=== PATIENT | female | born 1980 | race Caucasian/White ===

== ENCOUNTER 2017-04-28 16:01 | Emergency (ER) | payer OTHER ==
[2017-04-28] MEDS ORDERED: DEXAMETHASONE 4 MG TABLET PO ONE (19:30)
[2017-04-28] MEDS ORDERED: IBUPROFEN 800 MG TABLET PO ONE (19:30)
[2017-04-28] MEDS ORDERED: ONDANSETRON 4 MG TAB.RAPDIS PO ONE (19:30)
[2017-04-28] MEDS ORDERED: OXYCODONE-ACETAMINOPHEN 5-325 MG TABLET PO ONE (19:30)
[2017-04-28] MEDS ORDERED: CEPHALEXIN 500 MG CAPSULE PO ONE (19:30)
--- NOTE | 2017-04-28 19:34 | ER Document Report ---
HPI - HPI Patient complains to provider of: insect bite Onset: This morning Onset/Duration: Gradual Quality of pain: Sharp Pain Level: 4 Context: Patient states that she was bit on her foot by an unknown insect around 5 AM. Patient complains of itchiness, foot pain and swelling. Patient reports headache and nausea as well. Associated Symptoms: Headache, Nausea, Other - Foot pain Exacerbated by: Movement, Walking Relieved by: Denies Similar symptoms previously: No Recently seen / treated by doctor: No - ROS ROS below otherwise negative: Yes Systems Reviewed and Negative: Yes All other systems reviewed and negative - CONSTITUTIONAL Constitutional: DENIES: Fever - NEURO Neurology: REPORTS: Headache. DENIES: Weakness - CARDIOVASCULAR Cardiovascular: DENIES: Chest pain - RESPIRATORY Respiratory: DENIES: Coughing - GASTROINTESTINAL Gastrointestinal: REPORTS: Nausea. DENIES: Abdominal Pain, Patient vomiting - REPRODUCTIVE Reproductive: DENIES: : - MUSCULOSKELETAL Musculoskeletal: REPORTS: Extremity pain, Swelling - DERM Skin Color: Erythema Skin Problems: None Past Medical History - General Information source: Patient - Social History Smoking Status: Never Smoker Chew tobacco use (# tins/day): No Frequency of alcohol use: None Drug Abuse: None Occupation: [employer] Lives with: Family Family History: Reviewed & Not Pertinent Patient has suicidal ideation: No Patient has homicidal ideation: No - Medical History Medical History: Other - vocal dysfunction - Past Medical History Cardiac Medical History: Denies: Hx Coronary Artery Disease, Hx Heart Attack, Hx Hypertension Pulmonary Medical History: Reports: Hx Asthma Denies: Hx Bronchitis, Hx COPD, Hx Pneumonia Neurological Medical History: Denies: Hx Cerebrovascular Accident, Hx Seizures Endocrine Medical History: Denies: Hx Diabetes Mellitus Type 2 Renal/ Medical History: Denies: Hx Peritoneal Dialysis Musculoskeltal Medical History: Denies Hx Arthritis Psychiatric Medical History: Reports: Hx Anxiety Past Surgical History: Reports: Hx Section - x2, Hx Cholecystectomy, Hx Hysterectomy, Hx Orthopedic Surgery - left shouldar, Hx Tonsillectomy - Immunizations Hx Diphtheria, Pertussis, Tetanus Vaccination: Yes Vertical Provider Document - CONSTITUTIONAL Agree With Documented VS: Yes Exam Limitations: No Limitations General Appearance: WD/WN, No Apparent Distress - INFECTION CONTROL TRAVEL OUTSIDE OF THE [place] IN LAST 30 DAYS: No - HEENT HEENT: Atraumatic, Normocephalic - NECK Neck: Normal Inspection, Supple - RESPIRATORY Respiratory: Breath Sounds Normal, No Respiratory Distress O2 Sat by Pulse Oximetry: 97 - CARDIOVASCULAR Cardiovascular: Regular Rate, Regular Rhythm, No Murmur Pulses: Normal: Posterior tibial, Dorsalis pedis - MUSCULOSKELETAL/EXTREMETIES Musculoskeletal/Extremeties: MAEW, Tender - right foot tenderness, 2+ edema with mild erythema. No concern for abscess - NEURO Level of Consciousness: Awake, Alert, Appropriate Motor/Sensory: No Motor Deficit, No Sensory Deficit - DERM Integumentary: Warm, Dry. negative: Abscess Notes: erythema right foot Course - Vital Signs Vital signs: Temp Pulse Resp BP Pulse Ox 98.1 F 92 20 133/93 H 97 04/28/17 16:06 04/28/17 16:06 04/28/17 16:06 04/28/17 16:06 04/28/17 16:06 Discharge - Discharge Clinical Impression: Insect bite of foot, right Qualifiers: Encounter type: initial encounter Qualified Code(s): S90.861A - Insect bite ( nonvenomous), right foot, initial encounter Condition: Stable Disposition: HOME, SELF-CARE Instructions: Swollen Insect Bite or Sting ([facility]), Cephalexin ([facility]), Oral Narcotic Medication ([facility]) Additional Instructions: Return immediately for any new or worsening symptoms Followup with your primary care provider, call tomorrow to make a followup appointment Prescriptions: Cephalexin Monohydrate [Keflex 500 mg Capsule] 500 mg PO Q6H 5 Days Ondansetron HCl [Zofran 4 mg Tablet] 1 - 2 tab PO Q6 PRN #15 tablet PRN Reason: Oxycodone HCl/Acetaminophen [Percocet 5-325 mg Tablet] 1 tab PO ASDIR PRN #15 tablet PRN Reason: Forms: Return to Work Referrals: [facility] [Provider Group] - Follow up as needed
[2017-04-28 21:08] VITALS: BP 121/79
== END 2017-04-28 19:40 | disposition home or self-care (01) ==
LOC: ER 16:01
DX: S90.861A Insect bite (nonvenomous), right foot, initial encounter (principal); M79.89 Other specified soft tissue disorders; R51 Headache; R11.0 Nausea; M79.673 Pain in unspecified foot; W57.XXXA Bitten or stung by nonvenomous insect and other nonvenomous arthropods, initial encounter
CPT/HCPCS: 99281; S0119

== ENCOUNTER 2018-08-04 23:11 | Emergency (ER) | payer OTHER ==
[2018-08-04 23:37] VITALS: BP 116/73
--- NOTE | 2018-08-05 00:43 | RADIOLOGY REPORT (SQ) ---
4 VIEWS OF THE RIGHT KNEE HISTORY: Knee pain. COMPARISON: None. FINDINGS/IMPRESSION: Normal bone mineralization. No acute fracture or malalignment. Joint spaces are preserved. No joint effusion or soft tissue swelling.
[2018-08-05] MEDS ORDERED: HYDROCODONE/ACETAMINOPHEN 5-325 MG (6 TAB/ER DISP) PO PRN (02:39)
--- NOTE | 2018-08-05 02:41 | ER Document Report ---
ED Extremity Problem, Lower - General Chief Complaint: Knee Injury Stated Complaint: KNEE PAIN Time Seen by Provider: 08/05/18 02:20 TRAVEL OUTSIDE OF THE [place] IN LAST 30 DAYS: No - HPI Patient complains to provider of: Other - 37-year-old female who is generally healthy with pain in the right knee. She was standing at which time she shifted her weight, felt her right knee pop at which time she thought it might have hyperextended she had pain and swelling thereafter and decided to come the emergency room. Denies any fevers or chills, denies any abdominal pain, diarrhea constipation dysuria or other symptoms at this time. - Related Data Allergies/Adverse Reactions: adhesive tape Allergy (Verified 04/28/17 16:06) morphine [Morphine] Adverse Reaction (Unknown, Verified 04/28/17 16:06) Anxiety Past Medical History - General Information source: Patient - Social History Smoking Status: Former Smoker Family History: Reviewed & Not Pertinent - Past Medical History Cardiac Medical History: Denies: Hx Coronary Artery Disease, Hx Heart Attack, Hx Hypertension Pulmonary Medical History: Reports: Hx Asthma Denies: Hx Bronchitis, Hx COPD, Hx Pneumonia Neurological Medical History: Denies: Hx Cerebrovascular Accident, Hx Seizures Endocrine Medical History: Denies: Hx Diabetes Mellitus Type 2 Renal/ Medical History: Denies: Hx Peritoneal Dialysis Musculoskeletal Medical History: Denies Hx Arthritis Psychiatric Medical History: Reports: Hx Anxiety Past Surgical History: Reports: Hx Section - x2, Hx Cholecystectomy, Hx Hysterectomy, Hx Orthopedic Surgery - left shouldar, Hx Tonsillectomy - Immunizations Hx Diphtheria, Pertussis, Tetanus Vaccination: Yes Review of Systems - Review of Systems -: Yes All other systems reviewed and negative Physical Exam - Vital signs Vitals: Temp Pulse Resp BP Pulse Ox 98.1 F 66 16 116/73 16 L 08/04/18 23:33 08/04/18 23:33 08/04/18 23:33 08/04/18 23:33 08/04/18 23:33 - General General appearance: Appears well In distress: None - HEENT Head: Normocephalic Eyes: Normal Conjunctiva: Normal Cornea: Normal Extraocular movements intact: Yes Eyelashes: Normal Pupils: PERRL - Respiratory Respiratory status: No respiratory distress Chest status: Nontender Breath sounds: Normal Chest palpation: Normal - Cardiovascular Rhythm: Regular Heart sounds: Normal auscultation Murmur: No - Abdominal Inspection: Normal Distension: No distension Tenderness: Nontender - Back Back: Normal - Extremities General upper extremity: Normal inspection, Nontender, Normal ROM, Normal strength Knee: Other - The lower extremities are symmetric, the pelvis is stable, there is normal range of motion in the hips, knees, and ankles with passive range of motion The right knee demonstrates marked tenderness over the past There is no appreciable laxity on anterior drawer or varus or valgus stress, no palpable step-off along the tibial plateau Course - Re-evaluation Re-evalutation: 08/05/18 03:38 This is a 37-year-old with a sore knee after an atraumatic hyperextension injury. On examination she is got strong pulses distally, no obvious large effusion but tenderness over the insertion of the hamstrings. We will plan for this patient to undergo placement of a knee immobilizer crutches for assistance with ambulation and referral to orthopedics. She is in agreement with this at this time. Was given return precautions as well. - Vital Signs Vital signs: Temp Pulse Resp BP Pulse Ox 98.1 F 66 16 116/73 16 L 08/04/18 23:33 08/04/18 23:33 08/04/18 23:33 08/04/18 23:33 08/04/18 23:33 Discharge - Discharge Clinical Impression: Right knee sprain Qualifiers: Encounter type: initial encounter Involved ligament of knee: medial collateral ligament Qualified Code(s): S83.411A - Sprain of medial collateral ligament of right knee, initial encounter Knee pain Qualifiers: Chronicity: acute Laterality: right Qualified Code(s): M25.561 - Pain in right knee Condition: Good Disposition: HOME, SELF-CARE Instructions: Use of Crutches ([facility]), Ice & Elevation ([facility]), Suspected Internal Knee Injury ([facility]), Knee Immobilizing Splint ([facility]), Oral Narcotic Medication ([facility] ) Prescriptions: Hydrocodone/Acetaminophen [[place] 5-325 mg Tablet] 1 tab PO Q6H PRN #8 tablet PRN Reason: Referrals: EDITH NOLASCO MD [ACTIVE STAFF] - Follow up as needed
== END 2018-08-05 03:46 | disposition home or self-care (01) ==
LOC: ER 23:11
DX: S83.411A Sprain of medial collateral ligament of right knee, initial encounter (principal); M25.561 Pain in right knee; X50.9XXA Other and unspecified overexertion or strenuous movements or postures, initial encounter; J45.909 Unspecified asthma, uncomplicated; Z88.5 Allergy status to narcotic agent; Z91.048 Other nonmedicinal substance allergy status; Z87.891 Personal history of nicotine dependence
CPT/HCPCS: 99283; 73564; L1830

== ENCOUNTER → 2018-10-10 | Outpatient (CLI) | payer BC, OTHER ==
--- NOTE | 2018-10-10 15:43 | RADIOLOGY REPORT (SQ) ---
EXAM DESCRIPTION: CHEST 2 VIEWS COMPLETED DATE/TIME: 10/10/2018 1:18 pm REASON FOR STUDY: R05 COUGH COMPARISON: None. EXAM PARAMETERS: NUMBER OF VIEWS: two views TECHNIQUE: Digital Frontal and Lateral radiographic views of the chest acquired. RADIATION DOSE: NA LIMITATIONS: none FINDINGS: LUNGS AND PLEURA: No opacities, masses or pneumothorax. No pleural effusion. MEDIASTINUM AND HILAR STRUCTURES: No masses or contour abnormalities. HEART AND VASCULAR STRUCTURES: Heart normal size. No evidence for failure. BONES: No acute findings. HARDWARE: None in the chest. OTHER: No other significant finding. IMPRESSION: NO ACUTE RADIOGRAPHIC FINDING IN THE CHEST. TECHNICAL DOCUMENTATION: JOB ID: [id number] [employer]- All Rights Reserved Reading location - IP/workstation name: [email or web address]
== END ==
LOC: RAD 12:56
PROVIDERS: ATTEND Pediatrics Neonatal-Perinatal Medicine
DX: R05 Cough (principal)
CPT/HCPCS: 71046

== ENCOUNTER → 2018-11-06 | Outpatient (CLI) | payer BC, OTHER ==
[2018-11-06 15:51] LABS: A TYPE INFLUENZA AG NEGATIVE (NEGATIVE); B INFLUENZA AG NEGATIVE (NEGATIVE)
== END ==
LOC: OD 15:06
PROVIDERS: ATTEND Nurse Practitioner Family
DX: R68.89 Other general symptoms and signs (principal)
CPT/HCPCS: 87804

== ENCOUNTER → 2019-01-05 | Outpatient (CLI) | payer OTHER ==
[2019-01-05 12:42] LABS: BACTERIA (WET MOUNT) 4+ BACTERIA SEEN; EPITHELIALS (WET MOUNT) 4+ EPITHELIALS SEEN; T.VAGINALIS (WET MOUNT) NO TRICHOMONAS SEEN; WBCS (WET MOUNT) FEW WBCS SEEN; YEAST (WET MOUNT) YEAST SEEN
[2019-01-05 14:17] LABS: CHLAM PCR NOT DETECTED (NOT DETECT); GON PCR NOT DETECTED (NOT DETECT)
== END ==
LOC: LAB 12:40
PROVIDERS: ATTEND Nurse Practitioner Family
DX: N89.8 Other specified noninflammatory disorders of vagina (principal)
CPT/HCPCS: 87086; 87210; 87491; 87591

== ENCOUNTER 2019-06-23 14:57 | Emergency (ER) | payer OTHER ==
[2019-06-23] MEDS ORDERED: OXYCODONE-ACETAMINOPHEN 5-325 MG TABLET PO ONE (15:21)
[2019-06-23] MEDS ORDERED: ONDANSETRON 4 MG TAB.RAPDIS PO ONE (15:21)
[2019-06-23] MEDS ORDERED: KETOROLAC TROMETHAMINE INJ/PF 30 MG/1 ML SDV IV ONE (15:37)
[2019-06-23] MEDS ORDERED: METOCLOPRAMIDE HCL INJ/PF 10 MG/2 ML SDV IV ONE (15:37)
[2019-06-23] MEDS ORDERED: DIPHENHYDRAMINE HCL 50 MG/ML VIAL IV ONE (15:37)
[2019-06-23] MEDS ORDERED: DEXAMETHASONE SOD PHOS INJ 10 MG/1 ML VIAL IV ONE (15:37)
--- NOTE | 2019-06-23 15:41 | ER Document Report ---
ED Medical Screen (RME) - General Chief Complaint: Arm Pain Stated Complaint: NECK PAIN/NUMBNESS ON LEFT ARM Time Seen by Provider: 06/23/19 15:06 Primary Care Provider: DEREJE ALBRECHT MD [Primary Care Provider] - Follow up as needed Notes: Patient is a 38-year-old female presents to emergency department with a chief complaint of posterior neck pain and left arm pain. Patient states she was seen last week for the same and was diagnosed with a C7 bone spur. Patient states she was given Robaxin and naproxen which was only helping slightly. Patient reports that over the past week the neck and left arm pain has continued to get worse. Patient reports when she was seen here in the emergency department she was having left arm weakness with numbness and tingling. Patient states today while at work around 11:30 AM she went to lift her left arm and as she did this she got extreme pain down her left arm and was unable to grab the pin as she was having significant weakness to the left thumb, index finger and middle finger. Patient states as long as she does not move her left arm above the height of her shoulder the symptoms do improve. Patient also reports having extreme tension to the back of her neck and and headache. TRAVEL OUTSIDE OF THE [place] IN LAST 30 DAYS: No - Related Data Allergies/Adverse Reactions: adhesive tape Allergy (Verified 06/23/19 14:58) morphine [Morphine] Adverse Reaction (Unknown, Verified 06/23/19 14:58) Anxiety Past Medical History - Past Medical History Cardiac Medical History: Denies: Hx Coronary Artery Disease, Hx Heart Attack, Hx Hypertension Pulmonary Medical History: Reports: Hx Asthma Denies: Hx Bronchitis, Hx COPD, Hx Pneumonia Neurological Medical History: Denies: Hx Cerebrovascular Accident, Hx Seizures Endocrine Medical History: Denies: Hx Diabetes Mellitus Type 2 Renal/ Medical History: Denies: Hx Peritoneal Dialysis Musculoskeltal Medical History: Denies Hx Arthritis Psychiatric Medical History: Reports: Hx Anxiety Past Surgical History: Reports: Hx Section - x2, Hx Cholecystectomy, Hx Hysterectomy, Hx Orthopedic Surgery - left shouldar, Hx Tonsillectomy - Immunizations Hx Diphtheria, Pertussis, Tetanus Vaccination: Yes Physical Exam - Vital signs Vitals: Temp Pulse Resp BP Pulse Ox 98.4 F 81 18 131/62 H 97 06/23/19 15:07 06/23/19 15:07 06/23/19 15:07 06/23/19 15:07 06/23/19 15:07 - Respiratory Respiratory status: No respiratory distress Chest status: Nontender Breath sounds: Normal Chest palpation: Normal - Cardiovascular Rhythm: Regular Heart sounds: Normal auscultation, S1 appreciated, S2 appreciated - Extremities Notes: 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 Course - Re-evaluation Re-evalutation: 06/23/19 15:41 I have greeted and performed a rapid initial assessment of this patient. A comprehensive ED assessment and evaluation of the patient, analysis of test results and completion of the medical decision making process will be conducted by additional ED providers. - Vital Signs Vital signs: Temp Pulse Resp BP Pulse Ox 98.4 F 81 18 131/62 H 97 06/23/19 15:07 06/23/19 15:07 06/23/19 15:07 06/23/19 15:07 06/23/19 15:07 Doctor's Discharge - Discharge Referrals: DEREJE ALBRECHT MD [Primary Care Provider] - Follow up as needed
--- NOTE | 2019-06-23 18:41 | ER Document Report ---
ED General - General Chief Complaint: Arm Pain Stated Complaint: NECK PAIN/NUMBNESS ON LEFT ARM Time Seen by Provider: 06/23/19 15:06 Primary Care Provider: [facility] [Provider Group] - 06/25/19 Neurosurgery [Provider Group] - 06/25/19 DEREJE ALBRECHT MD [Primary Care Provider] - Follow up as needed TRAVEL OUTSIDE OF THE [place] IN LAST 30 DAYS: No - HPI Notes: 38-year-old female presents with left upper extremity weakness numbness and severe neck pain. Patient states a week ago she began to have some burning pain in her left upper extremity and neck. At that time she was seen in the emergency department, underwent CT imaging, was told she had a bone spur and sent home. Today at work around 11:30 AM she states she had done something and suddenly had sudden onset of severe pain in her neck coming all the way down her arm with some associated left arm numbness and is now having difficulty moving her fingers and is weak in her arm. She is improved somewhat since then but only marginally. No discrete direct injury. No fever, chills or sweats. No history of IV drug abuse. No history of prior neck injury. She had some type of shoulder surgery done on the left shoulder before in 2012 states she had 4 screws put in. Moderate severe intensity, sudden onset, nonradiating except as described. Worse with motion. No other modifying factors, no other associated symptoms, no other provocative or palliative factors. - Related Data Allergies/Adverse Reactions: adhesive tape Allergy (Verified 06/23/19 14:58) morphine [Morphine] Adverse Reaction (Unknown, Verified 06/23/19 14:58) Anxiety Past Medical History - Social History Smoking Status: Current Every Day Smoker Family History: Reviewed & Not Pertinent Patient has suicidal ideation: No Patient has homicidal ideation: No - Medical History Notes: Includes prior shoulder surgery - Past Medical History Cardiac Medical History: Denies: Hx Coronary Artery Disease, Hx Heart Attack, Hx Hypertension Pulmonary Medical History: Reports: Hx Asthma Denies: Hx Bronchitis, Hx COPD, Hx Pneumonia Neurological Medical History: Denies: Hx Cerebrovascular Accident, Hx Seizures Endocrine Medical History: Denies: Hx Diabetes Mellitus Type 2 Renal/ Medical History: Denies: Hx Peritoneal Dialysis Musculoskeletal Medical History: Denies Hx Arthritis Psychiatric Medical History: Reports: Hx Anxiety Past Surgical History: Reports: Hx Section - x2, Hx Cholecystectomy, Hx Hysterectomy, Hx Orthopedic Surgery - left shouldar, Hx Tonsillectomy - Immunizations Hx Diphtheria, Pertussis, Tetanus Vaccination: Yes Review of Systems - Review of Systems Notes: Review of systems as in the history of present illness, otherwise negative x 10 systems. Physical Exam - Vital signs Vitals: Temp Pulse Resp BP Pulse Ox 98.4 F 81 18 131/62 H 97 06/23/19 15:07 06/23/19 15:07 06/23/19 15:07 06/23/19 15:07 06/23/19 15:07 - Notes Notes: General: Well developed . HEENT: Normocephalic, atraumatic. Pupils equal round reactive to light. No JVD. Chest: No trauma. Respiratory: Good air exchange, normal excursion. Cardiac: Regular rhythm. No murmurs or gallops. Abdomen: Soft, benign. Nondistended. Nontender. Back: No asymmetry or gross abnormality. Motor: Decreased power at 4+ out of 5 in the left upper extremity compared to the right Neurologic: Anterolateral left upper extremity, normal pulses. Vascular: Well perfused. Normal peripheral pulses. Skin: No petechiae or purpura. Left upper extremity exam. Patient has diminished/absent reflexes at the biceps and triceps. Brachioradialis is unable to be elicited on both sides. She has weakness in all intrinsic muscles of the hand, as well as subtle mild weakness in flexion and extension at the elbow. She appears to be intact and symmetric in abduction/adduction and flexion extension at the shoulder. Wrist flexion and extension are also diminished on the left compared to the right. Course - Re-evaluation Re-evalutation: 06/23/19 18:40 38-year-old female with classic radicular symptoms consistent with cervical radiculopathy. However, she has had acute and marked worsening today. Concern over potential for cord impingement. We will proceed with emergent MRI, she is already received therapy and initial work-up from physician in triage including IV Decadron and Toradol. 06/24/19 04:04 Patient underwent MR imaging of her cervical spine. Showed a small central disc bulge at C5-C6. Patient has had no worsening during the course here, remains with what appears to be some improved strength on reexamination. She is referred closely to neurosurgery as an outpatient, given a prescription for analgesics and a Medrol Dosepak, will contact her primary care doctor in the morning. - Vital Signs Vital signs: Temp Pulse Resp BP Pulse Ox 97.8 F 60 16 102/57 L 100 06/24/19 01:28 06/23/19 22:05 06/24/19 01:28 06/24/19 01:28 06/24/19 01:28 Discharge - Discharge Clinical Impression: Cervical radiculitis Condition: Stable Disposition: HOME, SELF-CARE Instructions: Radiculopathy ([facility]) Additional Instructions: Contact your primary care doctor tomorrow for reevaluation and referral Prescriptions: Hydrocodone/Acetaminophen [Hydrocodone-Acetamin 5-300 mg] 1 each PO Q6 PRN #12 tablet PRN Reason: Methylprednisolone [Medrol Dosepack (4 mg/Tab) 21 Tab/Dosepak] 21 tab PO ASDIR PRN #1 dspk PRN Reason: Forms: Return to Work Referrals: DEREJE ALBRECHT MD [Primary Care Provider] - Follow up as needed [facility] [Provider Group] - 06/25/19 Neurosurgery [Provider Group] - 06/25/19
--- NOTE | 2019-06-23 22:58 | RADIOLOGY REPORT (SQ) ---
EXAM DESCRIPTION: MR CERVICAL SPINE WITHOUT IV CONTRAST COMPLETED DATE/TME: 06/23/2019 18:33 CLINICAL HISTORY: 38 years Female, Severe radicular pain, left UE weak and numb COMPARISON:Jun 14 2019, CT TECHNIQUE/LIMITATION: Conventional noncontrast MRI. FINDINGS: Normal alignment and curvature. Normal bone marrow signal. Normal signal of the spinal cord. Minimal inferior displacement of the cerebellar tonsils, 3 mm or less. Additionally, by levels: Craniovertebral junction: No significant spinal cord or nerve root compression. C1-C2: No significant spinal cord or nerve root compression. C2-C3: No significant spinal cord or nerve root compression. C3-C4: No significant spinal cord or nerve root compression. C4-C5: No significant spinal cord or nerve root compression. C5-C6: Small central disc protrusion mildly indents the ventral surface of the spinal cord. Normal cord signal. C6-C7: No significant spinal cord or nerve root compression. C7-T1: No significant spinal cord or nerve root compression. T1-T2: No significant spinal cord or nerve root compression. T2-T3: No significant spinal cord or nerve root compression. Else, unremarkable remaining soft tissues and neurovasculature including the visualized inferior cranium, nuchal soft tissues, lung apices, and paraspinal compartment. IMPRESSION: C5-C6: Small central disc protrusion mildly indents the ventral surface of the spinal cord.
[2019-06-24 01:30] VITALS: BP 102/57
== END 2019-06-24 01:30 | disposition home or self-care (01) ==
LOC: ER 14:57
DX: M54.12 Radiculopathy, cervical region (principal); M79.602 Pain in left arm; R20.0 Anesthesia of skin; F17.200 Nicotine dependence, unspecified, uncomplicated; Z88.6 Allergy status to analgesic agent; Z90.49 Acquired absence of other specified parts of digestive tract; Z90.710 Acquired absence of both cervix and uterus
CPT/HCPCS: 99283; 96374; 96375; 72141; J1200; J1885; J2765; J1100

== ENCOUNTER → 2019-10-14 | Outpatient (CLI) | payer OTHER ==
--- NOTE | 2019-10-14 12:59 | RADIOLOGY REPORT (SQ) ---
EXAM DESCRIPTION: C SP 3 VWS OR LESS COMPLETED DATE/TIME: 10/14/2019 10:06 am REASON FOR STUDY: CERVICAL RADICULOPATHY M54.12 RADICULOPATHY, CERVICAL REGION COMPARISON: None. NUMBER OF VIEWS: Two views TECHNIQUE: Lateral radiographic images in flexion and extension acquired of the cervical spine. LIMITATIONS: None. FINDINGS: MINERALIZATION: Normal. ALIGNMENT: Anatomic. VERTEBRAE: Vertebral bodies of normal height. DISCS: Disc implants are present at C4-5 and C5-6. HARDWARE: Anterior plate from C4-C6 with screws into the vertebral bodies and disc implants. SOFT TISSUES: No masses or calcifications. Lung apices clear. OTHER: No other significant finding. IMPRESSION: ACDF C4-C6 with no instability on flexion/ extension. TECHNICAL DOCUMENTATION: JOB ID: [id number] [employer]- All Rights Reserved Reading location - IP/workstation name: [email or web address]
== END ==
LOC: OD 09:27
PROVIDERS: ATTEND Specialist
DX: M54.12 Radiculopathy, cervical region (principal)
CPT/HCPCS: 72040

== ENCOUNTER → 2019-11-25 | Outpatient (CLI) | payer OTHER ==
--- NOTE | 2019-11-25 14:57 | RADIOLOGY REPORT (SQ) ---
EXAM DESCRIPTION: C SP 3 VWS OR LESS COMPLETED DATE/TIME: 11/25/2019 2:39 pm REASON FOR STUDY: CERVICAL DISC DISORDER W RADICULOPATHY, UNSP CERVICAL REGION M50.10 CERVICAL DISC DISORDER W RADICULOPATHY, UNSP CERVICAL COMPARISON: 10/14/2019. NUMBER OF VIEWS: Two view. TECHNIQUE: Lateral views of the cervical spine with flexion and extension. LIMITATIONS: None. FINDINGS: MINERALIZATION: Normal. ALIGNMENT: Anatomic. FLEXION/EXTENSION: No instability. VERTEBRAE: Vertebral bodies of normal height. DISCS: No significant osteophytes or sclerosis. Disc height maintained. LATERAL AND POSTERIOR ELEMENTS: Facets, lateral masses, and spinous processes without significant fin dings. HARDWARE: Disc inserts and anterior hardware at C4-C5 and C5-C6. SOFT TISSUES: No masses or calcifications. Lung apices clear. OTHER: No other significant finding. IMPRESSION: STABLE SURGICAL CHANGES AND HARDWARE. NO INSTABILITY ON FLEXION/EXTENSION. TECHNICAL DOCUMENTATION: JOB ID: [id number] [employer]- All Rights Reserved Reading location - IP/workstation name: [email or web address]
== END ==
LOC: OD 14:09
PROVIDERS: ATTEND Specialist
DX: M54.12 Radiculopathy, cervical region (principal)
CPT/HCPCS: 72040

== ENCOUNTER 2020-05-14 15:16 | Emergency (ER) | payer OTHER ==
[2020-05-14] MEDS ORDERED: KETOROLAC TROMETHAMINE 60 MG/2 ML SDV IM ONE (16:56)
[2020-05-14] MEDS ORDERED: DEXAMETHASONE SOD PHOS INJ 10 MG/1 ML VIAL IM ONE (16:56)
--- NOTE | 2020-05-14 16:56 | ER Document Report ---
ED Medical Screen (RME) - General Chief Complaint: Hip Pain Stated Complaint: HIP/BACK PAIN Time Seen by Provider: 05/14/20 16:54 Primary Care Provider: MERCEDEZ KAPOOR MD [Primary Care Provider] - Follow up as needed Mode of Arrival: Wheelchair Information source: Patient Notes: 39-year-old female presents to ED for complaint of increasing hip pelvic and low back pain. She states the pain is so that she is having difficulty walking. She states she does have a long history of pelvic hip and back pain. She states last night she took a diazepam for the pain and this morning at 8:00 she took 800 of ibuprofen and has had no relief. She states [facility]. She is also a state employee. She states she was seen couple weeks ago at urgent care and they gave her Toradol and Decadron and they did not do well letter good but she is willing to try it again. She states she does smoke a half a pack a day does not drink alcohol or use any illicit drugs. I have greeted and performed a rapid initial assessment of this patient. A comprehensive ED assessment and evaluation of the patient, analysis of test results and completion of medical decision making process will be conducted by an additional ED providers. TRAVEL OUTSIDE OF THE [place] IN LAST 30 DAYS: No - Related Data Allergies/Adverse Reactions: adhesive tape Allergy (Verified 06/23/19 14:58) morphine [Morphine] Adverse Reaction (Unknown, Verified 06/23/19 14:58) Anxiety Past Medical History - Past Medical History Cardiac Medical History: Denies: Hx Coronary Artery Disease, Hx Heart Attack, Hx Hypertension Pulmonary Medical History: Reports: Hx Asthma Denies: Hx Bronchitis, Hx COPD, Hx Pneumonia Neurological Medical History: Denies: Hx Cerebrovascular Accident, Hx Seizures Endocrine Medical History: Denies: Hx Diabetes Mellitus Type 2 Renal/ Medical History: Denies: Hx Peritoneal Dialysis Musculoskeltal Medical History: Denies Hx Arthritis Psychiatric Medical History: Reports: Hx Anxiety Past Surgical History: Reports: Hx Section - x2, Hx Cholecystectomy, Hx Hysterectomy, Hx Orthopedic Surgery - left shouldar, Hx Tonsillectomy - Immunizations Hx Diphtheria, Pertussis, Tetanus Vaccination: Yes Physical Exam - Vital signs Vitals: Temp Pulse Resp BP Pulse Ox 98.4 F 79 18 106/58 L 100 05/14/20 15:25 05/14/20 15:25 05/14/20 15:25 05/14/20 15:25 05/14/20 15:25 Course - Vital Signs Vital signs: Temp Pulse Resp BP Pulse Ox 98.4 F 79 18 106/58 L 100 05/14/20 15:25 05/14/20 15:25 05/14/20 15:25 05/14/20 15:25 05/14/20 15:25 Doctor's Discharge - Discharge Referrals: MERCEDEZ KAPOOR MD [Primary Care Provider] - Follow up as needed
--- NOTE | 2020-05-14 17:32 | RADIOLOGY REPORT (SQ) ---
EXAM DESCRIPTION: HIP LEFT AP/LATERAL IMAGES COMPLETED DATE/TIME: 05/14/2020 5:14 pm REASON FOR STUDY: Exacerbation of pain , left hip pelvic and low rebekah COMPARISON: None. NUMBER OF VIEWS: Two views. TECHNIQUE: AP pelvis and additional frog-leg view of the left hip. LIMITATIONS: None. FINDINGS: MINERALIZATION: Normal. LEFT HIP: No fracture or dislocation. No worrisome bone lesions. RIGHT HIP: No fracture or dislocation. No worrisome bone lesions. PUBIS AND ISCHIUM: No fracture. PELVIS: No fracture. SACRUM: No fracture or dislocation. No worrisome bone lesions. LOWER LUMBAR SPINE: No fracture or dislocation. No worrisome bone lesions. No significant disc disea se. SOFT TISSUES: No findings. OTHER: No other significant finding. IMPRESSION: NO RADIOGRAPHIC EVIDENCE OF ACUTE INJURY. TECHNICAL DOCUMENTATION: JOB ID: [id number] [place]-72 2010 [employer]- All Rights Reserved Reading location - IP/workstation name: [email or web address]
--- NOTE | 2020-05-14 17:33 | RADIOLOGY REPORT (SQ) ---
EXAM DESCRIPTION: L SPINE WHOLE IMAGES COMPLETED DATE/TIME: 05/14/2020 5:14 pm REASON FOR STUDY: Exacerbation of pain , left hip pelvic and low rebekah COMPARISON: None. NUMBER OF VIEWS: Five views including obliques. TECHNIQUE: AP, lateral, oblique, and sacral radiographic images acquired of the lumbar spine. LIMITATIONS: None. FINDINGS: MINERALIZATION: Normal. SEGMENTATION: Normal. No transitional anatomy. ALIGNMENT: Normal. VERTEBRAE: Maintained height. No fracture or worrisome bone lesion. DISCS: Preserved height. No significant osteophytes or end plate irregularity. POSTERIOR ELEMENTS: Pedicles and facets are intact. No pars defect or posterior arch defects. HARDWARE: None in the spine. PARASPINAL SOFT TISSUES: Normal. PELVIS: Intact as visualized. No fractures or worrisome bone lesions. SI joints intact. OTHER: No other significant finding. IMPRESSION: No acute findings. TECHNICAL DOCUMENTATION: JOB ID: [id number] [place]-72 2010 [employer]- All Rights Reserved Reading location - IP/workstation name: [email or web address]
[2020-05-14 18:06] VITALS: BP 104/64
--- NOTE | 2020-05-14 18:14 | ER Document Report ---
ED Neck/Back Problem - General Chief Complaint: Hip Pain Stated Complaint: HIP/BACK PAIN Time Seen by Provider: 05/14/20 16:54 Primary Care Provider: MERCEDEZ KAPOOR MD [NO LOCAL MD] - Follow up as needed KATE LIM MD [ASSOCIATE] - Follow up as needed Mode of Arrival: Wheelchair Notes: 39-year-old female presented to ED for complaint of left hip pain with low back and left pelvic pain. She states about 10 PM last night the pain started really bad. She states the pain was not bad yesterday so [place] and then last night she took a diazepam because the pain was so bad then this morning about 7 or 8:00 she took 800 of ibuprofen. She states the pain is been severe since then. She does have a past medical history with [facility] and she is now a state employee. Alert oriented respirations regular nonlabored speaking in full sentences. She is able to walk she has no signs or symptoms of cauda equina, no loss control of bowel bladder, no saddle anesthesia, no loss of control or sensation to the lower extremities. TRAVEL OUTSIDE OF THE [place] IN LAST 30 DAYS: No - HPI Patient complains to provider of: Pain, Lower back - Left hip and left pelvis Onset: Other - Tonic with exacerbation last night Where: Home Onset: Chronic Timing: Worse Quality of pain: Cramping, Sharp Severity: Moderate Pain Level: 4 Context: Turning Recent injury: No Associated symptoms: Like prior neck/back pain, Radiation to leg - Left hip pe lvis, Lower back pain. denies: Constipation, Fever, Incontinence, Motor loss, Numbness/tingling, Sensory loss, Sweaty, Unable to urinate Exacerbated by: Movement of trunk, Sitting position Relieved by: Nothing Similar symptoms previously: Yes Recently seen / treated by doctor: No - Related Data Allergies/Adverse Reactions: adhesive tape Allergy (Verified 05/14/20 16:58) morphine [Morphine] Adverse Reaction (Unknown, Verified 05/14/20 16:58) Anxiety Home Medications: paxil. asa Past Medical History - General Information source: Patient - Social History Smoking Status: Current Every Day Smoker Cigarette use (# per day): Yes - 1/2 pack/day Chew tobacco use (# tins/day): No Smoking Education Provided: Yes - 4 minutes Frequency of alcohol use: None Drug Abuse: None Occupation: State employee Lives with: Family Family History: Reviewed & Not Pertinent Patient has suicidal ideation: No Patient has homicidal ideation: No - Past Medical History Cardiac Medical History: Reports: None Pulmonary Medical History: Reports: Hx Asthma EENT Medical History: Reports: None Neurological Medical History: Reports: None Endocrine Medical History: Reports: None Renal/ Medical History: Reports: None Malignancy Medical History: Reports: None GI Medical History: Reports: None Musculoskeletal Medical History: Reports Hx Musculoskeletal Deformity, Reports Hx Musculoskeletal Trauma Skin Medical History: Reports None Psychiatric Medical History: Reports: Hx Anxiety Traumatic Medical History: Reports: None Infectious Medical History: Reports: None Past Surgical History: Reports: Hx Section - x2, Hx Cholecystectomy, Hx Hysterectomy, Hx Orthopedic Surgery - left shouldar, Hx Tonsillectomy - Immunizations Hx Diphtheria, Pertussis, Tetanus Vaccination: Yes Review of Systems - Review of Systems Constitutional: No symptoms reported EENT: No symptoms reported Cardiovascular: No symptoms reported Respiratory: No symptoms reported Gastrointestinal: No symptoms reported Genitourinary: No symptoms reported Female Genitourinary: No symptoms reported Musculoskeletal: Back pain, Muscle pain, Muscle stiffness Skin: No symptoms reported Hematologic/Lymphatic: No symptoms reported Neurological/Psychological: Numbness -: Yes All other systems reviewed and negative Physical Exam - Vital signs Vitals: Temp Pulse Resp BP Pulse Ox 98.4 F 79 18 106/58 L 100 05/14/20 15:25 05/14/20 15:25 05/14/20 15:25 05/14/20 15:25 05/14/20 15:25 Interpretation: Normal - General General appearance: Appears well, Alert - HEENT Head: Normocephalic, Atraumatic Eyes: Normal Pupils: PERRL - Respiratory Respiratory status: No respiratory distress Chest status: Nontender Breath sounds: Normal Chest palpation: Normal - Cardiovascular Rhythm: Regular Heart sounds: Normal auscultation Murmur: No - Abdominal Inspection: Normal Distension: No distension Bowel sounds: Normal Tenderness: Nontender Organomegaly: No organomegaly - Back Back: Normal, Tender, Vertebra tenderness Notes: 39-year-old female presented to ED for signs or symptoms of cauda equina,, no loss control of bowel bladder, saddle anesthesia, loss of control or sensation to lower extremities. Patient does have a long-term history of low back pain with right hip pain. She states she has be a disability for this pain but it is just worse today after patient on the peer sitting on the edge of a bucket last night. - Extremities General upper extremity: Normal inspection, Nontender, Normal color, Normal ROM, Normal temperature General lower extremity: Normal inspection, Nontender, Normal color, Normal ROM, Normal temperature, Normal weight bearing. No: Andrew's sign - Neurological Neuro grossly intact: Yes Cognition: Normal Orientation: AAOx4 [place] Coma Scale Eye Opening: Spontaneous [place] Coma Scale Verbal: Oriented Deena Coma Scale Motor: Obeys Commands [place] Coma Scale Total: 15 Speech: Normal Motor strength normal: LUE, RUE, LLE, RLE Sensory: Normal - Psychological Associated symptoms: Normal affect, Normal mood - Skin Skin Temperature: Warm Skin Moisture: Dry Skin Color: Normal Course - Re-evaluation Re-evalutation: 05/14/20 22:08 There were no acute processes on the x-rays. X-ray results were discussed with patient. Patient was treated with Toradol and Decadron in the emergency room before x-rays. After the x-ray reports were given to patient patient was treated with 1 Percocet and discharged home with instructions to [facility] and [facility]. Patient verbalized understanding and agreement with treatment plan patient was discharged home. Patient had no signs or symptoms of coronary equina. - Vital Signs Vital signs: Temp Pulse Resp BP Pulse Ox 98.7 F 65 16 104/64 99 05/14/20 18:05 05/14/20 18:05 05/14/20 18:05 05/14/20 18:05 05/14/20 18:05 - Diagnostic Test Radiology reviewed: Image reviewed, Reports reviewed Discharge - Discharge Clinical Impression: Acute exacerbation of chronic low back pain, Sciatica, left side Disposition: HOME, SELF-CARE Additional Instructions: Chronic Back Pain Chronic back pain (pain persisting longer than three months) is a common problem. A medical evaluation can look for herniated disc, arthritis, osteoporosis, tumors, and infections. But at least half the time, there's no obvious treatable cause. Anxiety and depression tend to worsen back pain. Ibuprofen or other anti-inflammatory medicine can help. A heating pad, used for 15-20 minutes at a time, can ease pain. For this type of back pain, narcotic medicines should be avoided. Muscle relaxers are rarely helpful unless you're having spasms. Activity is important. Find an aerobic exercise program that your back can tolerate. Too much rest makes back pain worse. Specific back exercises are usually prescribed to strengthen the back and abdominal muscles. Often, a physical therapist can help. Avoid heavy lifting, working while bent over, or standing with both knees straight. Most back pain patients do better with a firm mattress. If new symptoms of a "herniated disc" (radiation of pain, numbness, or tingling down the back of the leg or weakness in the leg) occur, you should be re-examined. ORAL NARCOTIC MEDICATION: You have been given a percocet for pain control. This medication is a narcotic. It's best taken with food, as nausea can result if taken on an empty stomach. Don't operate machinery or drive within six hours of taking this medication. Do not combine this medicine with alcohol, or with any medication which can cause sedation (such as cold tablets or sleeping pills) unless you get permission from the physician. Narcotics tend to cause constipation. If possible, drink plenty of fluids and eat a diet high in fiber and fruits. Please be aware that prescription narcotics also have the potential for abuse. People become addicted to these medications because of the general sense of wellbeing that they induce. This feeling along with a significant reduction in tension, anxiety, and aggression provides a stimulating seductive quality to these drugs. Once your pain is under control, we encourage you to discard your unused narcotics. MUSCLE RELAXERS: Muscle relaxing medications are usually prescribed for acute muscle spasm or injury to the neck and back. They are often combined with antiinflammatory pain medication for increased relief. You may stop the muscle relaxer when the pain and stiffness have improved. Start the medication again if spasms recur. Muscle relaxers may cause drowsiness, especially with the first dose. Do not operate machinery or drive while under the effects of the medication. Most muscle relaxers last up to 24 hours. Do not combine the medication with alcohol. ICE PACKS: Apply ice packs frequently against the painful area. Many different schedules are recommended, such as "20 minutes on, 20 minutes off" or "one hour ice, two hours rest." If you need to work, you may need to go longer between ice treatments. You should plan to have the area ice packed AT LEAST one fourth of the time. The ice should be applied over the wrap, tape, or splint, or over a layer of cloth -- not directly against the skin. Some ice bags have a built-in cloth and can be put directly on the skin. WARM PACKS: After approximately two days, apply gentle heat (such as a heating pad or hot water bottle) for about 20 to 30 minutes about every two hours -- at least four times daily. Warmth and elevation will help you make a more rapid recovery, and will ease the pain considerably. Do not use HOT heat, and never apply heat for longer than 30 minutes. The continuous heat can invisibly damage skin and muscles -- even when no burn is seen on the surface. Damaged muscles can make you MORE sore. Toradol Injection You have been given an injection of ketorolac tromethamine (Toradol). This is an excellent, safe drug for pain control. It also has potent antiinflammatory action. You should have significant pain relief within about one hour. Toradol is not addicting and is non-sedating. It does not interfere with driving or work. Call or return if you develop itching, hives, shortness of breath, or rash. STEROID MEDICATION: You have been given an injection of medicine of the cortisone/steroid cla ss. This medication is used to control inflammation or allergy. It is often continued as a pill for a short period of time, until the acute process subsides. There are usually no side effects from short-term use of cortisone-like medications. Some persons feel an increased sense of well-being and are not sleepy at bedtime. Long-term use of cortisone medications is best avoided, unless required for a severe condition. If your condition does not remit, or relapses after the course of corticosteroid medication, you should consult your physician. Stretching Exercises for the Back The physician has recommended that you begin stretching exercises for your back. These are often used even while the back is painful. However, you should notify the physician if the activities seem to increase your pain. PELVIC TILT: Lie flat on your back with knees bent. Tighten your stomach and buttock muscles so it flattens your lower back against the floor. Hold 10 seconds. Repeat 10 times, twice daily. KNEE RAISE: Lying on the back with knees bent, raise one knee to your chest, then the other. Hold both knees against the chest 10 seconds, then lower one knee at a time. Repeat 10 times, twice daily. PARTIAL TRUNK RAISE: Lie face down, arms at your sides. Keeping your waist on the floor, use your arms raise your chest up. Support yourself on your elbows for 30 seconds. Repeat twice daily, increasing the time to two minutes as you recover. FOLLOW-UP CARE: If you have been referred to a physician for follow-up care, call the physicians office for an appointment as you were instructed or within the next two days. If you experience worsening or a significant change in your symptoms, notify the physician immediately or return to the Emergency Department at any time for re-evaluation. Prescriptions: Methocarbamol [Robaxin 500 mg Tablet] 500 mg PO BIDP PRN #20 tablet PRN Reason: Forms: Return to Work Referrals: MERCEDEZ KAPOOR MD [NO LOCAL MD] - Follow up as needed KATE LIM MD [ASSOCIATE] - Follow up as needed
[2020-05-14] MEDS ORDERED: OXYCODONE-ACETAMINOPHEN 5-325 MG TABLET PO ONE (18:18)
== END 2020-05-14 18:22 | disposition home or self-care (01) ==
LOC: ER 15:16
DX: M54.42 Lumbago with sciatica, left side (principal); G89.29 Other chronic pain; R10.2 Pelvic and perineal pain; F17.210 Nicotine dependence, cigarettes, uncomplicated; Z71.6 Tobacco abuse counseling; J45.909 Unspecified asthma, uncomplicated; Z91.048 Other nonmedicinal substance allergy status
CPT/HCPCS: 99406; 99283; 96372; 73502; 72110; J1885; J1100

== ENCOUNTER 2020-07-12 20:38 | Emergency (ER) | payer OTHER ==
[2020-07-12] MEDS ORDERED: DEXAMETHASONE SOD PHOS INJ 10 MG/1 ML VIAL IM ONE (20:43)
[2020-07-12] MEDS ORDERED: DEXAMETHASONE SOD PHOS INJ 10 MG/1 ML VIAL IV ONE (20:47)
[2020-07-12] MEDS ORDERED: NORMAL SALINE 1000 ML 1,000 ML IV ONE (20:47)
--- NOTE | 2020-07-12 20:50 | ER Document Report ---
ED Medical Screen (RME) - General Chief Complaint: Sore Throat Stated Complaint: OTHER Time Seen by Provider: 07/12/20 20:41 Primary Care Provider: LAURA TAYLOR [Primary Care Provider] - Follow up as needed Mode of Arrival: Ambulatory Information source: Patient Notes: 39-year-old female with several day history of sore throat presenting to the [facility] with what sounds like stridor. Patient speaking in choppy sentences, states that she has a history of bacterial tracheitis, she states this feels similar. She reports she saw her primary care provider a few days ago who put her on azithromycin, she is not getting any better. She reports extreme difficulty when swallowing. Charge nurse made aware of need for bed placement. I have greeted and performed a rapid initial assessment of this patient. A comprehensive ED assessment and evaluation of the patient, analysis of test results and completion of the medical decision making process will be conducted by additional ED providers. I have specifically instructed the patient or family members with the patient to immediately return to any nursing staff should anything change in the patient's condition or with their chief complaint. TRAVEL OUTSIDE OF THE [place] IN LAST 30 DAYS: No - Related Data Allergies/Adverse Reactions: adhesive tape Allergy (Verified 05/14/20 16:58) morphine [Morphine] Adverse Reaction (Unknown, Verified 05/14/20 16:58) Anxiety Past Medical History - Past Medical History Cardiac Medical History: Denies: Hx Coronary Artery Disease, Hx Heart Attack, Hx Hypertension Pulmonary Medical History: Reports: Hx Asthma Denies: Hx Bronchitis, Hx COPD, Hx Pneumonia Neurological Medical History: Denies: Hx Cerebrovascular Accident, Hx Seizures Endocrine Medical History: Denies: Hx Diabetes Mellitus Type 2 Renal/ Medical History: Denies: Hx Peritoneal Dialysis Musculoskeltal Medical History: Denies Hx Arthritis, Reports Hx Musculoskeletal Deformity, Reports Hx Musculoskeletal Trauma Psychiatric Medical History: Reports: Hx Anxiety Past Surgical History: Reports: Hx Section - x2, Hx Cholecystectomy, Hx Hysterectomy, Hx Orthopedic Surgery - left shouldar, Hx Tonsillectomy - Immunizations Hx Diphtheria, Pertussis, Tetanus Vaccination: Yes Doctor's Discharge - Discharge [facility] - Follow up as needed
[2020-07-12 21:00] LABS: ABSOLUTE EOSINOPHILS # (AUTO) 0.5 10^3/uL (0.0-0.6); ABSOLUTE LYMPHOCYTES (AUTO) 3.4 10^3/uL (0.5-4.7); ABSOLUTE MONOCYTES (AUTO) 0.7 10^3/uL (0.1-1.4); ABSOLUTE NEUT (AUTO) 3.9 10^3/uL (1.7-8.2); BASOPHILS % (AUTO) 0.4 % (0-2); EOSINOPHILS % (AUTO) 5.8 % (0-6); HEMATOCRIT 41.3 % (36.0-47.0); HEMOGLOBIN 13.9 g/dL (12.0-15.5); LYMPHOCYTES % (AUTO) 40.1 % (13-45); MEAN CORPUSCULAR HEMOGLOBIN 27.8 pg (27.0-33.4); MEAN CORPUSCULAR HGB CONC 33.6 g/dL (32.0-36.0); MEAN CORPUSCULAR VOLUME 83 fl (80-97); MONOCYTES % (AUTO) 7.9 % (3-13); PLATELET COUNT 216 10^3/uL (150-450); RED CELL DISTRIBUTION WIDTH 13.4 % (11.5-14.0); SEGMENTED NEUTROPHILS % (AUTO) 45.8 % (42-78); TOTAL CELLS COUNTED % (AUTO) 100 %; WHITE BLOOD COUNT 8.4 10^3/uL (4.0-10.5)
[2020-07-12 21:13] LABS: ALBUMIN 4.5 g/dL (3.5-5.0); ALKALINE PHOSPHATASE 58 U/L (38-126); ANION GAP 7 (5-19); ASPARTATE AMINO TRANSFERASE 27 U/L (14-36); BILIRUBIN,DIRECT 0.2 mg/dL (0.0-0.4); BILIRUBIN,TOTAL 0.2 mg/dL (0.2-1.3); BLOOD UREA NITROGEN 7 mg/dL (7-20); CALCIUM 9.5 mg/dL (8.4-10.2); CARBON DIOXIDE 27 mmol/L (22-30); CHLORIDE 105 mmol/L (98-107); GLUCOSE 97 mg/dL (75-110); POTASSIUM 3.8 mmol/L (3.6-5.0); TOTAL PROTEIN 7.1 g/dL (6.3-8.2)
--- NOTE | 2020-07-12 21:28 | ER Document Report ---
ED Medical Screen (RME) - General Chief Complaint: Sore Throat Stated Complaint: OTHER Time Seen by Provider: 07/12/20 20:41 Primary Care Provider: LAURA TAYLOR [Primary Care Provider] - Follow up as needed Mode of Arrival: Ambulatory Notes: ED Medical Screen ([facility])) - General Chief Complaint: Sore Throat Stated Complaint: OTHER Time Seen by Provider: 07/12/20 20:41 Primary Care Provider: LAURA TAYLOR [Primary Care Provider] - Follow up as needed Mode of Arrival: Ambulatory Information source: Patient Notes: 39-year-old female with several day history of sore throat [facility] with what sounds like stridor. Patient speaking in choppy sentences, states that she has a history of bacterial tracheitis, she states this feels similar. She reports she saw her primary care provider a few days ago who put her on azithromycin, she is not getting any better. She reports extreme difficulty when swallowing. MY NOTES 39-year-old female arrives with her with chief complaint of laryngeal pain and green productive cough since Friday. The prior day her daughter and and she were at the. On Friday. She was feeling fine at that time. Her daughter developed a ear infection and was seen last night in the ER. Patient was diagnosed with vocal cord infection by a napkin machine operator at [facility] around 2 years ago. Patient reports in 2013 she had a tonsillectomy and adenoidectomy. She reports she had a temperature on Friday of 99 point 2 in the morning and then later 99 point 8 in the evening. Patient denies any spider bi martha tick bites animal bites human bites but does admit to fever chills. She denies any skin lesions any coronavirus exposure. Patient denies any cephalgia. TRAVEL OUTSIDE OF THE [place] IN LAST 30 DAYS: No - Related Data Allergies/Adverse Reactions: adhesive tape Allergy (Verified 05/14/20 16:58) morphine [Morphine] Adverse Reaction (Unknown, Verified 05/14/20 16:58) Anxiety Past Medical History - Past Medical History Cardiac Medical History: Denies: Hx Coronary Artery Disease, Hx Heart Attack, Hx Hypertension Pulmonary Medical History: Reports: Hx Asthma Denies: Hx Bronchitis, Hx COPD, Hx Pneumonia Neurological Medical History: Denies: Hx Cerebrovascular Accident, Hx Seizures Endocrine Medical History: Denies: Hx Diabetes Mellitus Type 2 Renal/ Medical History: Denies: Hx Peritoneal Dialysis Musculoskeltal Medical History: Denies Hx Arthritis, Reports Hx Musculoskeletal Deformity, Reports Hx Musculoskeletal Trauma Psychiatric Medical History: Reports: Hx Anxiety Past Surgical History: Reports: Hx Section - x2, Hx Cholecystectomy, Hx Hysterectomy, Hx Orthopedic Surgery - left shouldar, Hx Tonsillectomy - Immunizations Hx Diphtheria, Pertussis, Tetanus Vaccination: Yes Review of Systems - Review of Systems Constitutional: See HPI, Weakness, Recent illness EENT: No symptoms reported Cardiovascular: No symptoms reported Respiratory: No symptoms reported Gastrointestinal: No symptoms reported Genitourinary: No symptoms reported Female Genitourinary: No symptoms reported Musculoskeletal: No symptoms reported Skin: No symptoms reported Hematologic/Lymphatic: No symptoms reported Neurological/Psychological: No symptoms reported Physical Exam - Vital signs Vitals: Temp 98.7 F 07/12/20 23:15 - HEENT Head: Normocephalic Eyes: Normal Cornea: Normal Extraocular movements intact: Yes Eyelashes: Normal Pupils: PERRL Mouth/Lips: Normal Mucous membranes: Normal Pharynx: Normal Neck: Normal - Respiratory Respiratory status: No respiratory distress Chest status: Nontender Breath sounds: Normal Chest palpation: Normal - Cardiovascular Rhythm: Regular Heart sounds: Normal auscultation Murmur: No - Abdominal Inspection: Normal Distension: No distension Bowel sounds: Normal Tenderness: Nontender Organomegaly: No organomegaly - Rectal Hemorrhoids: Other - deferred - Genitourinary Bimanuel exam: Other - deferred - Back Back: Normal - Extremities General upper extremity: Normal inspection General lower extremity: Normal inspection - Neurological Neuro grossly intact: Yes Cognition: Normal Orientation: AAOx4 [place] Coma Scale Eye Opening: Spontaneous Deena Coma Scale Verbal: Oriented Deena Coma Scale Motor: Obeys Commands Deena Coma Scale Total: 15 Speech: Normal Motor strength normal: LUE, RUE, LLE, RLE Sensory: Normal - Psychological Associated symptoms: Anxious - Skin Skin Temperature: Warm Skin Moisture: Dry Course - Vital Signs Vital signs: Temp Pulse Resp BP Pulse Ox 98.7 F 07/12/20 23:15 - Laboratory Result Diagrams: 07/12/20 20:47 07/12/20 20:47 - Diagnostic Test Radiology reviewed: Reports reviewed - No epiglottitis or airway compromise positive cervical adenopathy and status post cervical surgery and chronic maxillary sinusitis. Critical Care Note - Critical Care Note Comments: I discussed findings with patient and her and they appear to understand. Patient requested some Toradol or something for the pain in her chest. I will write Ativan with her racemic breathing treatment. Doctor's Discharge - Discharge Clinical Impression: Bronchitis Condition: Good Disposition: HOME, SELF-CARE Additional Instructions: Follow-up with personal doctor this week return to ER as needed take medicines as directed encourage fluids Prescriptions: Acyclovir 200 mg PO TID #150 ml Levofloxacin [Levaquin 500 mg Tablet] 500 mg PO DAILY #10 tablet Nystatin/Dexameth/Diphen [Magic Mouthwash (Omh Formula) Susp] 5 ml PO QID #120 ml Forms: Return to Work Referrals: [facility] [Primary [facility]] - Follow up as needed
--- NOTE | 2020-07-12 21:37 | RADIOLOGY REPORT (SQ) ---
EXAM DESCRIPTION: Contrast-enhanced CT scan of the soft tissues of the neck. CLINICAL HISTORY: 39 years Female throat pain/swelling/stridor TECHNIQUE: Soft tissue protocol CT of the neck using intravenous contrast.. All CT scans at this facility use dose modulation, iterative reconstruction, and/or weight based dosing when appropriate to reduce radiation dose to as low as reasonably achievable. COMPARISON: None. FINDINGS: Sinuses: Mucosal thickening is present in the maxillary sinuses bilaterally consistent with chronic sinusitis. No air-fluid levels. The other paranasal sinuses are well aerated. Soft tissues of the neck and face are unremarkable. Salivary glands: Within normal limits. Pharynx: The epiglottis is normal. The pharyngeal mucosa appears normal. Parapharyngeal space is within normal limits. Artifact obscures the origin of the esophagus related to cervical spine fusion. No definitive airway narrowing is seen. Nodes: Nonspecific lymph nodes are identified bilaterally most pronounced at level two. Right-sided lymph nodes measure up to 18 mm and left-sided lymph nodes measure 14 mm. No necrotic nodes. No masses. Bones: There is postsurgical change in the cervical spine with hardware beginning at C4 and extending through C6. Intervertebral body spacers are noted at C4-5 and C5-6. Alignment is anatomic. The hardware appears flush with the cervical spine. Vascular: Within normal limits. Thyroid: Within normal limits. Lung apices are clear. Other: Visualized portion of the enhanced intracranial contents are unremarkable. Impression: 1. No evidence of epiglottitis or airway compromise. No radiopaque foreign body in the airway. 2. Postsurgical change in the cervical spine with hardware beginning at C4 and extending through C6. No evidence of complication. 3. Nonspecific cervical lymphadenopathy. 4. Chronic maxillary sinus disease. No acute sinusitis.
[2020-07-12] MEDS ORDERED: VANCOMYCIN HCL INJ 1000 MG VIAL IV ONE (21:43)
[2020-07-12] MEDS ORDERED: LEVOFLOXACIN 750 MG/D5W RTU 750 MG/150 ML RTUPB IV ONE (21:44)
[2020-07-12] MEDS ORDERED: RACEPINEPHRINE HCL 2.25% NEB 0.5 ML AMPUL NEB ONE (21:50)
[2020-07-12] MEDS ORDERED: LORAZEPAM INJ 2 MG/1 ML VIAL IV ONE (21:54)
[2020-07-12] MEDS ORDERED: NYSTATIN/DEXAMETH/DIPHEN SUSP 120 ML PO ONE (21:57)
[2020-07-12] MEDS ORDERED: KETOROLAC TROMETHAMINE INJ/PF 30 MG/1 ML SDV IV ONE (21:58)
[2020-07-13] MEDS ORDERED: VANCOMYCIN HCL INJ 1000 MG VIAL ONE (00:14)
[2020-07-13] MEDS ORDERED: NYSTATIN/DEXAMETH/DIPHEN SUSP 120 ML PO ONE (02:04)
[2020-07-13 02:27] VITALS: BP 113/69
== END 2020-07-13 02:31 | disposition home or self-care (01) ==
LOC: ER 20:38
DX: J40 Bronchitis, not specified as acute or chronic (principal); J32.0 Chronic maxillary sinusitis; J02.9 Acute pharyngitis, unspecified; R13.10 Dysphagia, unspecified; J45.909 Unspecified asthma, uncomplicated; R53.1 Weakness; Z90.89 Acquired absence of other organs; Z91.048 Other nonmedicinal substance allergy status
CPT/HCPCS: 99285; 96375; 96365; 36415; 87040; 85025; 80053; 70491; J1885; J2060; J7030; J3490 ×2; J3370; J1100; J1956